=== PATIENT | female | born 1975 | race Caucasian/White ===

== ENCOUNTER 2018-01-19 10:54 | Emergency (ER) | payer BC ==
[~2018-01-19] VITALS: Ht 165.1 cm; Wt 85.5 kg
[2018-01-19 10:58] VITALS: TEMP 97.8
[2018-01-19] MEDS ORDERED: MOTRIN 400400 MG/TAB PO (11:23)
[2018-01-19] MEDS ORDERED: PRILOSEC 20MG20 MG PO (11:23)
[2018-01-19 11:48] LABS: COLLECTION METHOD CLEAN CATCH
[2018-01-19 11:59] LABS: MEAN CELL VOLUME 73 fl (80.0-100.0); MEAN CORPUSCULAR HGB CONC 30 g/dl (33.0-37.0); MEAN PLATELET VOLUME 9.6 fl (7.4-10.4); PLATELET COUNT 272 K/mm3 (130-400); RED BLOOD COUNT 4.41 M/mm3 (4.10-5.30); REDCELL DISTRIBUTION WIDTH-CV 17.6 % (11.5-14.5)
[2018-01-19 12:00] LABS: HEMATOCRIT 32.2 % (37.0-47.0); HEMOGLOBIN 9.7 g/dl (12.5-16.0); MEAN CORPUSCULAR HEMOGLOBIN 22 pg (27.0-31.0)
[2018-01-19 12:02] LABS: MUCOUS Present /lpf; PH 5 (5-8); SQUAMOUS EPITHELIAL 0-2 /hpf; URINE APPEARANCE Hazy; URINE BACTERIA Rare /hpf; URINE BILIRUBIN Positive (NEGATIVE); URINE BLOOD Negative (NEGATIVE); URINE COLOR Amber; URINE GLUCOSE Negative (NEGATIVE); URINE KETONE Negative (NEGATIVE); URINE LEUKOCYTE ESTERASE Negative (NEGATIVE); URINE NITRATE Negative (NEGATIVE); URINE PROTEIN(semi-quant) 2+ (NEGATIVE); URINE UROBILINOGEN >=4.0 mg/dL (NEGATIVE)
[2018-01-19 12:11] LABS: ALBUMIN 3.7 gm/dL (3.5-5.0); C-REACTIVE PROTEIN 6.7 mg/dL (0.0-0.9); CREATININE, serum 0.8 mg/dL (0.52-1.25); POTASSIUM 3.4 mmol/L (3.4-5.0); TOTAL PROTEIN 8.1 gm/dL (6.4-8.2)
[2018-01-19 12:42] LABS: BAND 16 % (0-10); LYMPHOCYTE 10 % (20.0-51.0); NEUTROPHILS 73 % (42.0-75.2); PLATELET ESTIMATE NORMAL (NORMAL)
[2018-01-19 12:43] LABS: ANISOCYTOSIS 1+; HYPOCHROMIA 3+; MICROCYTOSIS 1+; OVALOCYTES 1+; POIKILOCYTOSIS 1+
[2018-01-19] MEDS ORDERED: NORCO 325 MG-51 TAB PO (14:23)
[2018-01-19] MEDS ORDERED: FLAGYL500 MG PO (14:23)
[2018-01-19] MEDS ORDERED: PREDNISONE 5MG5 MG PO (14:23)
[2018-01-19] MEDS ORDERED: CIPRO 500MG TA500 MG PO (14:23)
[2018-01-19 15:08] VITALS: BP 116/81; PULSE 71
== END 2018-01-19 15:10 | disposition home or self-care (01) ==
LOC: COL.ER 10:54
PROVIDERS: Emergency Medicine
DX: K50.90 Crohn's disease, unspecified, without complications (principal); K21.9 Gastro-esophageal reflux disease without esophagitis; F17.210 Nicotine dependence, cigarettes, uncomplicated
CPT/HCPCS: J2405; J7030; Q9967

== ENCOUNTER 2019-01-31 17:56 | Inpatient (IN) | payer SELFPAY ==
[~2019-01-31] VITALS: Ht 162.6 cm; Wt 83.4 kg
[~2019-01-31 17:56] MED LIST changes: -B-121000 MCG PO; -FERROUS SU325 MG/TAB PO; -FOLIC ACID 11 MG/TA1 PO; -PREDNISONE20 MG PO; -TYLENOL 325MG325 MG PO; -TYLENOL 500MG500 MG PO; -[UNRECOGNIZED DRUG - OTHER]
[2019-01-31 19:36] VITALS: BP 128/73; PULSE 64; TEMP 98
[2019-01-31 20:12] LABS: IRON,SERUM 17 ug/dL (35-150)
[2019-01-31 20:16] LABS: RETIC # 0.03 M/mm3 (0.02-0.16); RETIC % 0.8 % (0.5-3.52)
[2019-01-31 20:21] LABS: TOTAL IRON BINDING CAPACITY 451 ug/dL (265-497)
[2019-01-31] MEDS ORDERED: TYLENOL 500MG500 MG PO (20:31)
[2019-01-31 22:43] VITALS: BP 128/72; PULSE 68; TEMP 97.7
[2019-01-31] MEDS ORDERED: [UNRECOGNIZED DRUG - OTHER] (22:56)
[2019-01-31 22:58] VITALS: BP 121/67; PULSE 64; TEMP 98
[2019-01-31 23:28] VITALS: BP 119/63; PULSE 71; TEMP 97.5
[2019-02-01] VITALS (13 sets, daily range): BP systolic 115–142; BP diastolic 61–81; PULSE 46–75; TEMP 97.6–98.7
--- NOTE | 2019-02-01 01:37 | NUR ---
Report received at approximately 2200. Patient had 22 gauge in left AC. channel process supervisor able to start 20 gauge to right FA due to needing blood transfusion. Started transfussion at 2243. Stayed with patient for first 15 minutes. Tolerated well. No adverse effects. Finished transfusion at 0118. Assessed around 2300. Reported pain to rectum from hemorrhoids. Given PRN Motrin as requested. Blood given to peripheral IV to right forearm (20 gauge). Flushed peripheral IV to left AC. Both are patent, and without redness, warmth, swelling, and pain. NS running at 75 ml/hr at this time to right forearm. LS CTA. Does report occasional SOB and dyspnea. Respirations even and unlabored. HRR. Telemetry intact. BSAx4. Abdomen soft and non-tender. Able to urinate for UA, but did not call for staff to collect and urine was sitting for about 30 minutes. Asked patient to call staff and get a new sample. Patient voiced understanding. Voices no questions, needs, or concerns at this time. Resting in bed with call light within reach. This nurse called ELECTRICAL HELPER at approximately 0125 to notify her that blood transfusion was done. Asked if she wanted an H&H drawn, or wait for 0500 lab draws. Stated to wait for 0500 lab draws.
--- NOTE | 2019-02-01 05:17 | NUR ---
Resting in bed with eyes closed at this time. No further complaints of pain or discomfort voiced at this time. Has voiced no questions, needs, or concerns so far this shift. Call light is within reach.
[2019-02-01 06:12] LABS: BASO % 0.4 % (0.0-2.0); EOS # 0.2 (0.0-0.7); EOS % 2.1 % (0-4.0); GRAN # 4.1 (1.4-6.5); GRAN % 57.1 % (42.2-75.2); LYMPH # 2.4 (1.2-3.4); LYMPH % 33.8 % (20.0-51.0); MEAN CELL VOLUME 68 fl (80.0-100.0); MEAN CORPUSCULAR HGB CONC 28 g/dl (33.0-37.0); MEAN PLATELET VOLUME 9.5 fl (7.4-10.4); MONO # 0.5 (0.1-0.6); MONO % 6.3 % (1.7-9.3); PLATELET COUNT 309 K/mm3 (130-400); RED BLOOD COUNT 3.67 M/mm3 (4.10-5.30); REDCELL DISTRIBUTION WIDTH-CV 20.7 % (11.5-14.5)
[2019-02-01 06:25] LABS: HEMATOCRIT 24.9 % (37.0-47.0); HEMOGLOBIN 6.9 g/dl (12.5-16.0); MEAN CORPUSCULAR HEMOGLOBIN 19 pg (27.0-31.0)
[2019-02-01 06:30] LABS: CALCIUM 8.5 mg/dL (8.4-10.2); CREATININE, serum 0.64 (0.52-1.25); POTASSIUM 3.7 mmol/L (3.4-5.0)
--- NOTE | 2019-02-01 07:27 | NUR ---
Report given to day shift nurse.
--- NOTE | 2019-02-01 08:26 | NUR ---
Pt up in chair, finished breakfast. C/O rectal pain 02/14. Assessment complete. NS @ 75mL/hr in R FA. No s/s infiltration.
[2019-02-01 09:06] LABS: COLLECTION METHOD CLEAN CATCH
[2019-02-01 09:18] LABS: MUCOUS Present /lpf; PH 5 (5-8); URINE APPEARANCE Hazy; URINE BACTERIA Rare /hpf; URINE BILIRUBIN Negative (NEGATIVE); URINE BLOOD Negative (NEGATIVE); URINE CALCIUM OXALATE CRYSTAL Present /hpf; URINE COLOR Yellow; URINE GLUCOSE Negative (NEGATIVE); URINE KETONE Negative (NEGATIVE); URINE LEUKOCYTE ESTERASE Negative (NEGATIVE); URINE NITRATE Negative (NEGATIVE); URINE PROTEIN(semi-quant) Negative (NEGATIVE); URINE RBC None Seen /hpf; URINE UROBILINOGEN Negative (NEGATIVE)
--- NOTE | 2019-02-01 13:55 | NUR ---
SW attended clinical rounds to discuss discharge planning. Patient lives independently at home with her daughter. Patient has other family, including her mother, in [place]. Patient's PCP is Eloise Headley at the [facility]. Patient's preferred pharmacy is [email or web address]. Patient does not use any DME or home health services. Patient does not have a DPOA and is not interested in completing any advanced directive. Patient does not have any insurance but will be seen by Dylan from financial counseling. SW does not anticipate any discharge needs.
[2019-02-01 16:44] LABS: FOLATE (FOLIC ACID) 3.2 ng/mL (7.0-31.4)
--- NOTE | 2019-02-01 19:03 | NUR ---
End of shift report given to MATT Peters. No s/s from blood transfusion noted. Up ad john in room. Started prep for colonoscopy in AM. Call light within reach.
[2019-02-02 03:59] VITALS: BP 118/69; PULSE 56; TEMP 98.1
[2019-02-02 06:48] LABS: BASO % 0.4 % (0.0-2.0); EOS # 0.1 (0.0-0.7); EOS % 1.1 % (0-4.0); GRAN # 5.8 (1.4-6.5); GRAN % 69.4 % (42.2-75.2); LYMPH # 2.1 (1.2-3.4); LYMPH % 24.6 % (20.0-51.0); MEAN CELL VOLUME 68 fl (80.0-100.0); MEAN CORPUSCULAR HGB CONC 29 g/dl (33.0-37.0); MEAN PLATELET VOLUME 9.5 fl (7.4-10.4); MONO # 0.3 (0.1-0.6); MONO % 4.1 % (1.7-9.3); PLATELET COUNT 325 K/mm3 (130-400); RED BLOOD COUNT 3.91 M/mm3 (4.10-5.30); REDCELL DISTRIBUTION WIDTH-CV 21.6 % (11.5-14.5)
[2019-02-02 06:50] LABS: HEMATOCRIT 26.7 % (37.0-47.0); HEMOGLOBIN 7.7 g/dl (12.5-16.0); MEAN CORPUSCULAR HEMOGLOBIN 20 pg (27.0-31.0)
--- NOTE | 2019-02-02 07:00 | NUR ---
Report received from MATT Bedolla. PT in chair at side of bed resting, denies needs, started preop IVF for EGD/COLON this am. Will continue to monitor.
[2019-02-02 07:04] LABS: CALCIUM 8.7 mg/dL (8.4-10.2); CREATININE, serum 0.52 (0.52-1.25); POTASSIUM 3.6 mmol/L (3.4-5.0)
[2019-02-02 07:17] VITALS: BP 129/69; PULSE 58; TEMP 98.3
--- NOTE | 2019-02-02 07:41 | NUR ---
Assessment charted. Pt has had clear output after bowel prep, hemerrhoids are causing pain at 3/10, using barrier cream now to help with ache. Picked up by OR transportation at this time for EGD/Colonoscopy. IVF to RFA, INT to LAC. BLE +1 swelling. Denies needs, will await return from OR.
[2019-02-02 08:30] VITALS: BP 139/74; PULSE 53
[2019-02-02 08:45] VITALS: BP 144/90; PULSE 54
[2019-02-02 09:00] VITALS: BP 124/89; PULSE 62
[2019-02-02 09:15] VITALS: BP 142/79; PULSE 57
[2019-02-02] MEDS ORDERED: FLAGYL500 MG PO (10:26)
[2019-02-02] MEDS ORDERED: FERROUS SU325 MG/TAB PO (10:26)
[2019-02-02] MEDS ORDERED: TYLENOL 325MG325 MG PO (10:27)
[2019-02-02] MEDS ORDERED: FOLIC ACID 11 MG/TA1 PO (10:29)
[2019-02-02] MEDS ORDERED: B-121000 MCG PO (10:29)
[2019-02-02] MEDS ORDERED: PREDNISONE20 MG PO (10:34)
--- NOTE | 2019-02-02 11:05 | NUR ---
Pt arrived back to floor at 0830 from procedure, awake and oriented and up to bathroom immediately. VSS. Went down at [address] of ABD. Called Dr. aHrris for recs on diet and he was good with anything. Will continue to monitor.
--- NOTE | 2019-02-02 11:17 | NUR ---
Initial visit; Patient thanked Costume Specialist for looking in on her, visiting and keeping her in Costume Specialist's prayers.
--- NOTE | 2019-02-02 12:30 | NUR ---
Discharge packet reviewed at this time. Discussed discharge medications, follow up appointments, answered all qeustions. INT dc'd, tip intact. Pt left with all belongings, escorted out by myself, daughter to drive home, criteria met.
== END 2019-02-02 12:30 | disposition home or self-care (01) | DRG 812 ==
LOC: MEDICAL 17:56
PROVIDERS: Internal Medicine Gastroenterology; Nurse Practitioner Family; ADMIT Hospitalist
PROC: 0DBN8ZX Excision of Sigmoid Colon, Via Natural or Artificial Opening Endoscopic, Diagnostic (ICD-10-PCS; principal; 2019-02-02 07:45)
PROC: 0DJ08ZZ Inspection of Upper Intestinal Tract, Via Natural or Artificial Opening Endoscopic (ICD-10-PCS; 2019-02-02 07:45)
DX: D50.0 Iron deficiency anemia secondary to blood loss (chronic) (principal); K50.80 Crohn's disease of both small and large intestine without complications; K56.699 Other intestinal obstruction unspecified as to partial versus complete obstruction; K21.9 Gastro-esophageal reflux disease without esophagitis; D64.9 Anemia, unspecified; F17.210 Nicotine dependence, cigarettes, uncomplicated; K64.4 Residual hemorrhoidal skin tags; Z88.0 Allergy status to penicillin; Z88.2 Allergy status to sulfonamides; Z88.1 Allergy status to other antibiotic agents; R00.1 Bradycardia, unspecified
CPT/HCPCS: 99222-AI; 99239; C9113; J2704; J7030; J7120; J7512; P9016; Q9967

== ENCOUNTER → 2019-01-31 | Outpatient (CLI) | payer SELFPAY ==
[~2019-01-31] MED LIST: ADVIL200 MG PO; B-121000 MCG PO; CIPRO 500MG TA500 MG PO; FERROUS SU325 MG/TAB PO; FLAGYL500 MG PO; FOLIC ACID 11 MG/TA1 PO; NORCO 325 MG-51 TAB PO; PREDNISONE 5MG5 MG PO; PREDNISONE20 MG PO; PRILOSEC 20MG20 MG PO; TYLENOL 325MG325 MG PO; TYLENOL 500MG500 MG PO; [UNRECOGNIZED DRUG - OTHER]
[2019-01-31 14:39] LABS: BASO % 0.4 % (0.0-2.0); EOS # 0.1 (0.0-0.7); EOS % 1.5 % (0-4.0); GRAN # 4.6 (1.4-6.5); GRAN % 62.6 % (42.2-75.2); LYMPH # 2.2 (1.2-3.4); LYMPH % 29.7 % (20.0-51.0); MEAN CELL VOLUME 66 fl (80.0-100.0); MEAN CORPUSCULAR HGB CONC 27 g/dl (33.0-37.0); MEAN PLATELET VOLUME 9.1 fl (7.4-10.4); MONO # 0.4 (0.1-0.6); MONO % 5.5 % (1.7-9.3); PLATELET COUNT 387 K/mm3 (130-400); REDCELL DISTRIBUTION WIDTH-CV 19.6 % (11.5-14.5)
[2019-01-31 14:47] LABS: ALANINE AMINOTRANSFERASE < 6 U/L (9-52); ALBUMIN 3.9 gm/dL (3.5-5.0); ALKALINE PHOSPHATASE 66 U/L (50-136); ANION GAP 10 mmol/L (7-16); AST,SGOT 16 U/L (15-37); BILIRUBIN,TOTAL 0.2 mg/dL (0.0-1.0); BLOOD UREA NITROGEN 8 mg/dL (7-17); CALCIUM 8.8 mg/dL (8.4-10.2); CARBON DIOXIDE 22 mmol/L (22-30); CHLORIDE 108 mmol/L (98-107); CREATININE, serum 0.64 (0.52-1.25); GLUCOSE 119 mg/dL (74-106); POTASSIUM 3.7 mmol/L (3.4-5.0); SODIUM 139 mmol/L (137-145); TOTAL PROTEIN 7.8 gm/dL (6.4-8.2)
[2019-01-31 15:30] LABS: HEMATOCRIT 24.9 % (37.0-47.0); HEMOGLOBIN 6.8 g/dl (12.5-16.0); MEAN CORPUSCULAR HEMOGLOBIN 18 pg (27.0-31.0)
== END ==
LOC: COL.LAB 13:48
DX: K50.90 Crohn's disease, unspecified, without complications (principal); D64.9 Anemia, unspecified

== ENCOUNTER 2019-05-31 18:37 | Emergency (ER) | payer MEDICAID ==
[~2019-05-31] VITALS: Ht 162.6 cm; Wt 86.4 kg
[~2019-05-31 18:37] MED LIST changes: +B-121000 MCG PO; +FERROUS SU325 MG/TAB PO; +FOLIC ACID 11 MG/TA1 PO; +PREDNISONE20 MG PO; +TYLENOL 325MG325 MG PO; +TYLENOL 500MG500 MG PO; +[UNRECOGNIZED DRUG - OTHER]
[2019-05-31 18:43] VITALS: TEMP 98
[2019-05-31 20:48] LABS: BASO % 0.5 % (0.0-2.0); EOS # 0.1 (0.0-0.7); EOS % 1.1 % (0-4.0); GRAN # 4.1 (1.4-6.5); GRAN % 52.4 % (42.2-75.2); LYMPH % 38.8 % (20.0-51.0); MEAN CELL VOLUME 72 fl (80.0-100.0); MEAN CORPUSCULAR HGB CONC 29 g/dl (33.0-37.0); MEAN PLATELET VOLUME 9.7 fl (7.4-10.4); MONO # 0.5 (0.1-0.6); MONO % 6.9 % (1.7-9.3); PLATELET COUNT 318 K/mm3 (130-400); RED BLOOD COUNT 4.31 M/mm3 (4.10-5.30); REDCELL DISTRIBUTION WIDTH-CV 16.5 % (11.5-14.5)
[2019-05-31 20:57] LABS: ALANINE AMINOTRANSFERASE < 6 U/L (9-52); ALBUMIN 4.1 gm/dL (3.5-5.0); ALKALINE PHOSPHATASE 61 U/L (50-136); ANION GAP 8 mmol/L (7-16); AST,SGOT 18 U/L (15-37); BILIRUBIN,TOTAL 0.2 mg/dL (0.0-1.0); BLOOD UREA NITROGEN 7 mg/dL (7-17); CALCIUM 9.2 mg/dL (8.4-10.2); CARBON DIOXIDE 25 mmol/L (22-30); CHLORIDE 106 mmol/L (98-107); CREATININE, serum 0.66 (0.52-1.25); GLUCOSE 87 mg/dL (74-106); LIPASE 72 U/L (23-300); POTASSIUM 3.4 mmol/L (3.4-5.0); SODIUM 139 mmol/L (137-145); TOTAL PROTEIN 7.9 gm/dL (6.4-8.2)
[2019-05-31] MEDS ORDERED: HUMIRA(CF)20 MG/0.2 SQ (21:01)
[2019-05-31 21:08] LABS: C-REACTIVE PROTEIN < 0.5 mg/dL (0.0-0.9); MEAN CORPUSCULAR HEMOGLOBIN 21 pg (27.0-31.0)
[2019-05-31] MEDS ORDERED: FLAGYL500 MG PO (22:14)
[2019-05-31 22:34] VITALS: BP 128/62; PULSE 56
== END 2019-05-31 22:30 | disposition home or self-care (01) ==
LOC: COL.ER 18:37
PROVIDERS: Emergency Medicine
DX: K62.89 Other specified diseases of anus and rectum (principal); K50.90 Crohn's disease, unspecified, without complications; Z79.1 Long term (current) use of non-steroidal anti-inflammatories (NSAID); Z87.891 Personal history of nicotine dependence

== ENCOUNTER → 2019-06-01 | Outpatient (CLI) | payer MEDICAID ==
[~2019-06-01] MED LIST changes: +HUMIRA(CF)20 MG/0.2 SQ
== END ==
LOC: COL.RAD 15:51
DX: K61.1 Rectal abscess (principal); L98.8 Other specified disorders of the skin and subcutaneous tissue
CPT/HCPCS: Q9967

== ENCOUNTER → 2019-06-12 | Outpatient (CLI) | payer MEDICAID | LOC: COL.RAD 09:54 | DX: K50.90 Crohn's disease, unspecified, without complications (principal) | CPT/HCPCS: Q9967 ==

== ENCOUNTER → 2019-07-16 | Outpatient (CLI) | payer MEDICAID | LOC: COL.RAD 07-13 08:30 | DX: K56.699 Other intestinal obstruction unspecified as to partial versus complete obstruction (principal) ==

== ENCOUNTER 2019-08-13 06:09 | Day surgery (SDC) | payer MEDICAID ==
[~2019-08-13] VITALS: Ht 162.6 cm; Wt 86.4 kg
[2019-08-13 06:39] VITALS: BP 124/83; PULSE 64; TEMP 97.9
--- NOTE | 2019-08-13 06:52 | NUR ---
TO RM AT 0615- CALL LIGHT IN REACH WILL CALL FATHER FOR RIDE.
[2019-08-13 08:00] VITALS: BP 102/66; PULSE 60; TEMP 97.8
--- NOTE | 2019-08-13 08:00 | NUR ---
Patient arrives back to [facility] drowsy, denies pain or nausea. Patient ambulates from cart to chair with stand by assist and without any complications. Patient monitor applied, vitals stable. Patient resting comfortably. Patient given toast and soda.
[2019-08-13 08:13] VITALS: TEMP 97.8
[2019-08-13 08:15] VITALS: BP 122/82; PULSE 56
[2019-08-13 08:30] VITALS: BP 111/70; PULSE 54
--- NOTE | 2019-08-13 08:30 | NUR ---
Patient tolerated toast and soda without any nausea. Vitals stable.
--- NOTE | 2019-08-13 08:45 | NUR ---
Dr Choudhury into see patient at this time.
--- NOTE | 2019-08-13 08:50 | NUR ---
Dismissal instructions gone over with patient. Patient verbalizes understanding and all questions answered. Patient is going to call her father now to come pick her up.
--- NOTE | 2019-08-13 09:05 | NUR ---
Patient discharged to patient enterance via wheelchair. Patient's father is picking her up. Patient leaves thanking staff for services.
== END 2019-08-13 09:05 | disposition home or self-care (01) ==
LOC: SDCO 06:09
DX: K63.89 Other specified diseases of intestine (principal); K50.00 Crohn's disease of small intestine without complications; K56.699 Other intestinal obstruction unspecified as to partial versus complete obstruction; K64.4 Residual hemorrhoidal skin tags; K21.9 Gastro-esophageal reflux disease without esophagitis; Z79.899 Other long term (current) drug therapy; Z88.1 Allergy status to other antibiotic agents; Z88.0 Allergy status to penicillin; Z88.8 Allergy status to other drugs, medicaments and biological substances; Z87.891 Personal history of nicotine dependence; J44.9 Chronic obstructive pulmonary disease, unspecified
CPT/HCPCS: J2704; J7120

== ENCOUNTER → 2021-04-30 | Outpatient (CLI) | payer MEDICAID | LOC: COL.RAD 10:23 | DX: K50.118 Crohn's disease of large intestine with other complication (principal); K56.699 Other intestinal obstruction unspecified as to partial versus complete obstruction; Z98.890 Other specified postprocedural states | CPT/HCPCS: Q9967 ==

== ENCOUNTER 2021-07-27 13:57 | Emergency (ER) | payer MEDICAID ==
[~2021-07-27] VITALS: Ht 165.1 cm; Wt 61.4 kg
[2021-07-27 14:56] LABS: BASO # 0.1 K/mm3 (0.0-0.2); BASO % 0.5 % (0.0-2.0); EOS % 0.3 % (0.0-4.0); GRAN # 8.1 K/mm3 (1.4-6.5); GRAN % 83.6 % (42.2-75.2); HEMOGLOBIN 10.8 g/dl (12.5-16.0); LYMPH # 0.9 K/mm3 (1.2-3.4); LYMPH % 9.6 % (20.0-51.0); MEAN CELL VOLUME 80 fl (80.0-100.0); MEAN CORPUSCULAR HEMOGLOBIN 26 pg (27-31); MEAN CORPUSCULAR HGB CONC 33 g/dl (33.0-37.0); MONO # 0.5 K/mm3 (0.1-0.6); MONO % 5.6 % (1.7-9.3); PLATELET COUNT 272 K/mm3 (130-400); RED BLOOD COUNT 4.14 M/mm3 (4.10-5.30); REDCELL DISTRIBUTION WIDTH-CV 18.4 % (11.5-14.5)
[2021-07-27 15:07] LABS: TRICYCLIC ANTIDEPRESS URINE NEGATIVE
[2021-07-27 15:21] LABS: MUCOUS Present (NOT PRESENT); PH 5 (5-8); SQUAMOUS EPITHELIAL 0-2 /hpf (0-10); URINE APPEARANCE Hazy (CLEAR/HAZY); URINE BACTERIA Rare /hpf (NONE SEEN); URINE BILIRUBIN Negative (NEGATIVE); URINE BLOOD 1+ (NEGATIVE); URINE COLOR Yellow (YELLOW); URINE GLUCOSE Negative (NEGATIVE); URINE KETONE Negative (NEGATIVE); URINE LEUKOCYTE ESTERASE Negative (NEGATIVE); URINE NITRATE Negative (NEGATIVE); URINE PROTEIN(semi-quant) 1+ (NEGATIVE); URINE RBC 0-2 /hpf (0-2); URINE UROBILINOGEN Negative (NEGATIVE)
[2021-07-27 15:28] LABS: TSH w REFLEX 1.411 uIU/mL (0.350-4.940)
[2021-07-27 15:34] LABS: COLLECTION METHOD CLEAN CATCH
[2021-07-27 15:50] LABS: ACETAMINOPHEN < 1.0 ug/mL (10-30); ALANINE AMINOTRANSFERASE 9 U/L (0-55); ALBUMIN 3.9 gm/dL (3.5-5.0); ALCOHOL(ethanol),MEDICAL < 10 mg/dL (0-10); ALKALINE PHOSPHATASE 45 U/L (40-150); ANION GAP 13 mmol/L (7-16); AST,SGOT 23 U/L (5-34); BILIRUBIN,TOTAL 0.7 mg/dL (0.2-1.2); BLOOD UREA NITROGEN 4 mg/dL (7-19); CALCIUM 9.1 mg/dL (8.4-10.2); CARBON DIOXIDE 21 mmol/L (22-29); CHLORIDE 102 mmol/L (98-107); GLUCOSE 69 mg/dL (70-99); POTASSIUM 3.6 mmol/L (3.5-4.5); SALICYLATE < 5.0 mg/dL (15.0-30.0); SODIUM 136 mmol/L (136-145); TOTAL PROTEIN 7.6 gm/dL (6.2-8.1)
[2021-07-28 08:48] VITALS: TEMP 98.5
[2021-07-28 18:33] VITALS: BP 135/78; PULSE 81
== END 2021-07-28 18:33 ==
LOC: COL.ER 13:57
PROVIDERS: Family Medicine
DX: F29 Unspecified psychosis not due to a substance or known physiological condition (principal); K21.9 Gastro-esophageal reflux disease without esophagitis; Z20.822 Contact with and (suspected) exposure to COVID-19; Z32.02 Encounter for pregnancy test, result negative; Z79.899 Other long term (current) drug therapy
CPT/HCPCS: J1630; J2060; J7120

== ENCOUNTER 2022-09-05 03:48 | Emergency (ER) | payer MEDICAID ==
[~2022-09-05] VITALS: Ht 162.6 cm; Wt 65.9 kg
[2022-09-05 04:31] LABS: BASO % 0.2 % (0.0-2.0); EOS # 0.1 K/mm3 (0.0-0.7); EOS % 0.9 % (0.0-4.0); GRAN # 11.2 K/mm3 (1.4-6.5); GRAN % 86.1 % (42.2-75.2); HEMATOCRIT 38.6 % (37.0-47.0); HEMOGLOBIN 12.5 g/dl (12.5-16.0); LYMPH # 1.3 K/mm3 (1.2-3.4); LYMPH % 9.8 % (20.0-51.0); MEAN CELL VOLUME 87 fl (80.0-100.0); MEAN CORPUSCULAR HEMOGLOBIN 28 pg (27-31); MEAN CORPUSCULAR HGB CONC 32 g/dl (33.0-37.0); MEAN PLATELET VOLUME 9.5 fl (7.4-10.4); MONO # 0.4 K/mm3 (0.1-0.6); MONO % 2.8 % (1.7-9.3); PLATELET COUNT 286 K/mm3 (130-400); RED BLOOD COUNT 4.43 M/mm3 (4.10-5.30); REDCELL DISTRIBUTION WIDTH-CV 15.4 % (11.5-14.5)
[2022-09-05 04:33] LABS: COLLECTION METHOD CLEAN CATCH
[2022-09-05 04:45] LABS: ALBUMIN 3.5 gm/dL (3.5-5.0); BILIRUBIN,TOTAL 0.2 mg/dL (0.2-1.2); C-REACTIVE PROTEIN 2.43 mg/dL (0.00-0.50); CALCIUM 9.1 mg/dL (8.4-10.2); CREATININE, serum 0.73 mg/dL (0.57-1.11); POTASSIUM 3.9 mmol/L (3.5-4.5); TOTAL PROTEIN 7.7 gm/dL (6.2-8.1)
[2022-09-05 04:52] LABS: MUCOUS Present (NOT PRESENT); SQUAMOUS EPITHELIAL 0-2 /hpf (0-10); URINE APPEARANCE Clear (CLEAR/HAZY); URINE BACTERIA Rare /hpf (NONE SEEN); URINE COLOR Yellow (YELLOW)
[2022-09-05 04:53] LABS: URINE BLOOD TRACE-LYSED (NEGATIVE); URINE GLUCOSE Negative (NEGATIVE); URINE KETONE Negative (NEGATIVE); URINE NITRATE Negative (NEGATIVE); URINE PROTEIN(semi-quant) Negative (NEGATIVE); URINE UROBILINOGEN 0.2 E.U/dL (0.2-1.0)
[2022-09-05] MEDS ORDERED: FLAGYL500 MG PO (05:53)
[2022-09-05] MEDS ORDERED: NORCO 325 MG-51 TAB PO (05:53)
[2022-09-05] MEDS ORDERED: LEVAQUIN 750MG750 M1 PO (05:53)
[2022-09-05] MEDS ORDERED: PREDNISONE50 MG PO (05:56)
[2022-09-05 06:15] VITALS: BP 128/61; PULSE 62; TEMP 98.2
== END 2022-09-05 06:17 | disposition home or self-care (01) ==
LOC: COL.ER 03:48
PROVIDERS: Emergency Medicine
DX: K50.90 Crohn's disease, unspecified, without complications (principal); K63.89 Other specified diseases of intestine; Z88.0 Allergy status to penicillin; Z88.5 Allergy status to narcotic agent; Z91.040 Latex allergy status; Z20.822 Contact with and (suspected) exposure to COVID-19
CPT/HCPCS: J2270; J2405; J7120; J7512; Q9967